=== PATIENT | male | born 1965 | race Caucasian/White ===

== ENCOUNTER 2018-06-27 08:06 | Outpatient (CLI) | payer OTHER, SELFPAY ==
[2018-06-27 11:14] LABS: TSH 3.63 uIU/mL (0.358-3.74)
== END 2018-06-27 08:26 ==
PROVIDERS: PCP Family Medicine; Visit Provider Family Medicine
DX: E03.9 Hypothyroidism, unspecified (principal)
CPT/HCPCS: 36415; 84443

== ENCOUNTER 2019-07-01 08:29 | Outpatient (CLI) | payer OTHER, SELFPAY ==
[2019-07-01 10:07] LABS: Absolute Basophil Count 0.01 k/cumm (0.0-0.2); Absolute Eosinophil Count 0.09 k/cumm (0.0-0.7); Absolute Lymphocyte Count 1.61 k/cumm (1.2-3.4); Absolute Monocyte Count 0.45 k/cumm (0.11-0.7); Absolute Neutrophil Count 2.79 k/cumm (1.2-6.7); Basophils % 0.2; Eosinophils % 1.8; HGB 16.2 g/dL (13.5-17.5); Lymphocytes % 32.5; Mean Corp. HGB Concentration 33.8 g/dL (32.0-36.0); Mean Corpuscular Hemoglobin 30.7 pg (27.0-33.0); Mean Corpuscular Volume 90.9 fL (80-95); Mean Platelet Volume 9.8 fL (8.0-11.0); Monocytes % 9.1; Neutrophils % 56.4; Platelet Count 223 x1000/uL (130-400); RBC 5.28 m/cumm (4.50-6.00); RBC Distribution Width 12.5 % (11.8-14.1); White Blood Cell Count 4.95 k/cumm (4.4-10.8)
[2019-07-01 11:06] LABS: ALT 66 U/L (16-63); AST 25 U/L (15-37); Albumin 4.1 g/dL (3.4-5.0); Alkaline Phosphatase 75 U/L (46-116); Anion Gap 8.7 mmol/L (3-11); BUN 18 mg/dL (7-18); Bilirubin, Total 0.5 mg/dL (0.2-1.0); CO2 30.3 mmol/L (21.0-32.0); Calculated LDL 170 mg/dL (<100); Chloride 104 mmol/L (98-107); Cholesterol 227 mg/dL (<200); Glucose 89 mg/dL (74-106); HDL Cholesterol 42 mg/dL (40-60); Potassium 4.2 mmol/L (3.5-5.1); Sodium 143 mmol/L (136-145); TSH 0.27 uIU/mL (0.36-3.74); Total Protein 6.7 g/dL (6.4-8.2); Triglyceride 77 mg/dL (<150)
== END 2019-07-01 08:49 ==
PROVIDERS: PCP Family Medicine; Visit Provider Family Medicine
DX: E78.00 Pure hypercholesterolemia, unspecified (principal); Z79.899 Other long term (current) drug therapy; I10 Essential (primary) hypertension; E03.9 Hypothyroidism, unspecified
CPT/HCPCS: 36415; 80053; 80061; 84443; 85025

== ENCOUNTER 2023-01-26 02:46 | Emergency (ER) | payer OTHER, SELFPAY ==
--- NOTE | 2023-01-26 02:45 | DI.CT_ITS ---
Exam(s) CT RENAL COLIC WO EXAM: CT RENAL COLIC WO CLINICAL HISTORY: left flank pain. TECHNIQUE: Imaging Protocol: Axial computed tomography images with coronal and sagittal reformatted images were created and reviewed. COMPARISON: No exams were available for comparison FINDINGS: ABDOMEN: Lung Bases: There is a small hiatal hernia. Liver: Normal density. No measurable mass. Gallbladder and biliary tract: No radiodense calculus or biliary ductal dilation. Pancreas: Normal density, no abnormal calcifications or inflammatory process. Spleen: Normal. Kidneys: Normal size, contour and axis.There is a 4 mm stone in the distal left ureter just proximal to the UVJ causing mild hydronephrosis. There is a 9 mm cortical hypodensity in the superior pole of the right kidney. This is nonspecific and may represent a cyst. Adrenal glands: No mass is seen. Lymph nodes: Within normal limits. Abdominal Aorta: Abdominal portion non-dilated. Atherosclerosis. PELVIS: Bladder:Symmetric distention, no gross wall thickening. Bowel: There is diverticulosis but no evidence of acute diverticulitis. Appendix is unremarkable. T here is no evidence of bowel wall thickening or obstruction. Peritoneal cavity: No ascites, collection or mesenteric inflammatory response. No free air. Reproductive organs: Unremarkable as visualized. Bones: Within normal limits. Soft Tissues: There are bilateral fat containing inguinal hernias. There is a small fat containing u mbilical hernia. IMPRESSION: There is a 4 mm distal left ureteral calculus just proximal to the UVJ with mild hydronephrosis. RADIATION DOSE DELIVERED: 1,087.89mGy.cm Total DLP DATA REPOSITORY: All CT scans at this facility are submitted to the National Radiology Data Registry (NRDR) Dose Index Registry (DIR) with the [employer] ([employer]). RADIATION OPTIMIZATION: All CT scans at this facility use at least one of these dose optimization te chniques: automated exposure control; mA and/or kV adjustment per patient size (includes targeted exa ms where dose is matched to clinical indication); or iterative reconstruction.
[2023-01-26 02:54] VITALS: BP 171/110; PULSE 76; RESP 16
--- NOTE | 2023-01-26 02:54 | ED.GENADUL_ITS ---
Discharge Plan Disposition Patient Disposition: Home Condition: Improving Discharge Details Clinical Impression: Renal colic on left side, Kidney stone on left side Primary Care Provider: Vikram Simpson ED Provider: Rick Patel Meds and New Rx's Prescriptions: Continued losartan 100 mg tablet 100 mg PO DAILY atorvastatin [Lipitor] 40 mg tablet 40 mg PO DAILY levothyroxine [Synthroid] 150 mcg tablet 150 mcg PO DAILY Discharge Instructions Instructions: Kidney Stones (ED), Renal Colic (ED) Referrals: Vikram Simpson [Primary Care Provider] - 1 week Discharge Data Discharge Physician: Rick Patel Medical Decision Making Medical decision making MDM: Summary: Patient presented to the emergency department with severe pain that required Toradol morphine and Dilaudid. CT scan was obtained with suspicion of kidney stone and the patient had a 4 mm stone in the left distal ureter. He has remained pain-free for 2 hours and will be discharged home Data Review Analysis All the data on this patient was reviewed by me including laboratory and imaging studies as well as bedside studies performed by me Independent review of Studies Imaging CT scan of the abdomen pelvis shows a left distal ureter 4 mm stone Lab: Labs are unremarkable Risk Stratification: Patient with a left distal ureter 4 mm kidney stone, stone passage for he is pain-free will be discharged home Differential Diagnosis: 1. Kidney stone 2. Aortic aneurysm 3. Back pain 4. 5. Consultants: Shared disposition: Patient present disposition and will follow up with his primary care physician Impression: Lab Data Lab results reviewed: Yes I reviewed the patient's lab results. HPI General Date/Time Provider Initiated Documentation: 01/26/23 02:53 . HPI Narrative: Patient presents emergency department with severe left flank pain associated with nausea vomiting reports the pain started about 2 hours ago because it got severe in the left flank radiating to the left lower quadrant. Reports he had 2 episodes of vomiting and reports the pain is a 9/10 he is screaming in pain here in the emergency department Related Data Home Medications Medication Instructions Recorded Confirmed atorvastatin 40 mg tablet (Lipitor) 40 mg PO DAILY 06/19/22 01/26/23 levothyroxine 150 mcg tablet 150 mcg PO DAILY 06/19/22 01/26/23 (Synthroid) losartan 100 mg tablet 100 mg PO DAILY 06/19/22 01/26/23 Allergies Allergy/AdvReac Type Severity Reaction Status Date / Time metal Allergy Uncoded 01/26/23 02:58 Review of Systems Narrative: Review of Systems: Constitutional: No fevers, chills, sweats Eye: No recent visual problems ENT: No ear pain, nasal congestion, sore throat Respiratory: No shortness of breath, cough Cardiovascular: No Chest pain, palpitations, syncope Gastrointestinal:, diarrhea Genitourinary: No hematuria Sanjay/Lymph: Negative for bruising tendency, swollen lymph glands Endocrine: Negative for excessive thirst, excessive hunger Musculoskeletal: No back pain, neck pain, joint pain, muscle pain, decreased range of motion Integumentary: No rash, pruritus, abrasions Neurologic: Alert & oriented X 4 Psychiatric: No anxiety, depression PFSH All Active Problems (Updated 01/26/23 @ 06:47 by Rick Patel MD) Renal colic on left side (Acute) Kidney stone on left side (Acute) GERD (gastroesophageal reflux disease) (Chronic) Hypertension (Chronic) Hypercholesterolemia (Acute) Hypothyroidism (Chronic) Medical History Lipoma of neck Social History Smoking/Tobacco Use Status: Current every day Smoking risk assessment performed?: Yes Exam Narrative Exam Narrative: Exam; vitals signs as reported above normal Constitutional; In no acute distress, afebrile General: cooperative, healthy appearing, in severe acute distress HEENT: Head: normal to inspection, no palpable skull fracture and normocephalic atraumatic Eyes: : appearance normal, both eyes and all related structures EOM intact bilaterally Pupils: PERRL : conjunctiva normal Direct ophthalmoscopy: normal light reflex, normal conjunctiva, normal visual acuity Ears: Normal TM, normal external canal Neck no JVD, supple non tender Neck: normal visual inspection, full ROM and no lymphadenopathy Chest: normal inspection of the chest Respiratory : normal respiratory effort and able to speak in complete sentences no wheezing no rales Cardio Rate: regular rate, rhythm: regular rhythm normal heart sounds S1 and S2 no murmurs, gallops, or rubs GI : normal to inspection, normal bowel sounds, soft, non tender, non distended, no organomegaly Back/Spine/ no CVA tenderness Thoracic/Lumbar Spine: no tenderness or deformities Skin no rashes or lesions Neuro: patient alert and no meningeal signs, Cranial Nerves: CN's II-XI intact bilaterally, Cognition: normal cognition, Speech: speech normal, Gait: normal gait, Depp tendon reflexes normal 2+ muscle strength 5/5 bilaterally Extremities, no edema, full range of motion, normal strength : normal Rectal: defered Course Patient received Toradol and morphine with significant improvement of his symptoms Reevaluation(s) Reevaluation: Patient received another dose of Dilaudid 0.5 mg with improvement of recurrent pain
[2023-01-26] MEDS: Ondansetron 4 MG/2 ML VIAL IVP (03:10)
[2023-01-26] MEDS: Ketorolac 15 MG/ML VIAL IVP (03:10)
[2023-01-26] MEDS: MORPHine 10 MG/ML VIAL 4 MG IVP (03:10)
[2023-01-26] MEDS: Normal Saline 1,000 ML 1000 ML IV (03:10)
[2023-01-26 03:12] LABS: Abs Immature Grans 0.03 10^3/uL (0.0-0.06); Absolute Basophil Count 0.04 10^3/uL (0.0-0.2); Absolute Eosinophil Count 0.14 10^3/uL (0.0-0.7); Absolute Lymphocyte Count 2.08 10^3/uL (1.2-3.4); Absolute Monocyte Count 0.66 10^3/uL (0.1-0.8); Absolute Neutrophil Count 7.45 10^3/uL (1.2-6.7); Basophils % 0.4; Eosinophils % 1.3; HCT 43.3 % (40.0-50.0); HGB 14.9 g/dL (13.5-17.5); Immature Grans % 0.3; MCH 31.2 pg (27.0-33.0); MCHC 34.4 % (32.0-36.0); MCV 91 fL (80-95); MPV 9.9 fL (8.0-11.0); Monocytes % 6.3; Neutrophils % 71.7; Platelet Count 243 10^3/uL (130-400); RBC 4.77 10^6/uL (4.36-5.78); RDW 11.9 % (11.8-14.1); RDW-SD 39.6 fL
[2023-01-26 03:40] LABS: ALT 45 U/L (16-63); AST 20 U/L (15-37); Alkaline Phosphatase 84 U/L (46-116); Anion Gap 10.9 mmol/L (3-11); BUN 28 mg/dL (7-18); Bilirubin, Total 0.7 mg/dL (0.2-1.0); CO2 23.1 mmol/L (21.0-32.0); CREATININE 1.2 mg/dL (0.70-1.30); Chloride 104 mmol/L (98-107); Estimated GFR 71.42 (mL/min/1.73m2); Glucose 176 mg/dL (74-106); Lipase 31 U/L (16-77); Potassium 3.4 mmol/L (3.5-5.1); Sodium 138 mmol/L (136-145); Total Protein 6.7 g/dL (6.4-8.2)
[2023-01-26] MEDS: HYDROmorphone 2 MG/ML SYR 0.5 MG IVP (04:15)
--- NOTE | 2023-01-26 05:17 | DI.VRAD_ITS ---
PROCEDURE INFORMATION: Exam: CT Abdomen And Pelvis Without Contrast Exam date and time: 01/26/2023 3:29 AM Age: 57 years old Clinical indication: Abdominal pain; Flank; Left TECHNIQUE: Imaging protocol: Computed tomography of the abdomen and pelvis without contrast. COMPARISON: No relevant prior studies available. FINDINGS: Liver: Normal. No mass. Gallbladder and bile ducts: Normal. No calcified stones. No ductal dilation. Pancreas: Normal. No ductal dilation. Spleen: Normal. No splenomegaly. Adrenal glands: Normal. No mass. Kidneys and ureters: 4 mm calculus left distal ureter with minimal left hydroureteronephrosis. Stomach and bowel: Colonic diverticula. No obstruction. No mucosal thickening. Appendix: No evidence of appendicitis. Intraperitoneal space: Unremarkable. No free air. No significant fluid collection. Vasculature: Unremarkable. No abdominal aortic aneurysm. Lymph nodes: Unremarkable. No enlarged lymph nodes. Urinary bladder: Unremarkable as visualized. Reproductive: Unremarkable as visualized. Bones/joints: Unremarkable. No acute fracture. Soft tissues: Fat containing inguinal hernias. IMPRESSION: 4 mm calculus left distal ureter with minimal left hydroureteronephrosis. Dictated and Authenticated by: Migue Mazariegos MD. Ordering:CATHERINE Cabrera MD
[2023-01-26 05:42] VITALS: BP 135/94; PULSE 83; RESP 16; O2SAT 95
[2023-01-26 06:32] LABS: Bilirubin Small (Negative); Blood Large (Negative); Clarity Sl Cloudy (Clear); Glucose Negative (Negative); Ketones Trace mg/dL (Negative); Leukocyte Esterase Negative (Negative); Nitrite Negative (Negative); Specific Gravity >= 1.030 (1.005-1.025); Urobilinogen 0.2 mg/dL (Up to 0.2)
[2023-01-26 06:46] LABS: Bacteria Rare HPF (Negative); C & S Indicated? No; Casts Negative LPF (Negative); Crystals Negative HPF (Negative); Epithelial Cells Rare HPF (Negative); Mucus Negative (Negative); RBC >50 HPF (0-2); WBC Negative HPF (0-5)
== END 2023-01-26 09:59 | disposition home or self-care (01) ==
PROVIDERS: Emergency Provider Emergency Medicine Emergency Medical Services; PCP Family Medicine
DX: N13.2 Hydronephrosis with renal and ureteral calculous obstruction (principal); K44.9 Diaphragmatic hernia without obstruction or gangrene; K57.30 Diverticulosis of large intestine without perforation or abscess without bleeding; I10 Essential (primary) hypertension; E78.00 Pure hypercholesterolemia, unspecified; E03.9 Hypothyroidism, unspecified; R11.2 Nausea with vomiting, unspecified
CPT/HCPCS: 80053; 83690; 96361; 96374; 99284; 74176; 81003; 81015; 85025; 99283; J1170; J1885; J2270; J2405